=== PATIENT | male | born 1960 | race Caucasian/White ===

== ENCOUNTER → 2021-11-08 | Outpatient (CLI) | payer OTHER ==
--- NOTE | 2021-11-08 16:03 | XR ---
EXAMINATION TYPE: XR chest 2V DATE OF EXAM: 11/08/2021 COMPARISON: None HISTORY: 61-year-old male R06.02, wheezing, cough, shortness of breath TECHNIQUE: Frontal and lateral views FINDINGS: The cardiomediastinal silhouette, aorta, and pulmonary vasculature are within normal limits. Lungs an d pleural spaces are clear. IMPRESSION: No acute cardiopulmonary process.
== END | disposition home or self-care (01) ==
LOC: RADXRMAIN 13:10
PROVIDERS: ATTEND Family Medicine
DX: R06.02 Shortness of breath (principal)
CPT/HCPCS: 71046

== ENCOUNTER 2022-10-18 10:31 | Observation (INO) | payer OTHER ==
[2022-10-18 11:16] LABS: Basophils % (A) 1 %; Eosinophils # (A) 0.1 k/uL (0-0.7); Eosinophils % (A) 1 %; HCT 41.3 % (39.0-53.0); HGB 14.7 gm/dL (13.0-17.5); Lymphocytes # (A) 1.7 k/uL (1.0-4.8); Lymphocytes % (A) 25 %; MCH 31.2 pg (25.0-35.0); MCHC 35.6 g/dL (31.0-37.0); MCV 87.7 fL (80.0-100.0); Mean Platelet Volume 7.4; Monocytes # (A) 0.4 k/uL (0-1.0); Monocytes % (A) 6 %; Neutrophils # (A) 4.3 k/uL (1.3-7.7); Neutrophils % (A) 64 %; Platelet Count 188 k/uL (150-450); RBC 4.71 m/uL (4.30-5.90); RDW 14.5 % (11.5-15.5); WBC 6.8 k/uL (3.8-10.6)
[2022-10-18 11:34] LABS: ALT 39 U/L (4-49); AST 36 U/L (17-59); African American GFR (CKD) >90 (>60 ml/min/1.73 sqM); Albumin 4.3 g/dL (3.5-5.0); Alkaline Phosphatase 130 U/L (38-126); Anion Gap 10 mmol/L; Blood Urea Nitrogen 12 mg/dL (9-20); Calcium 9.6 mg/dL (8.4-10.2); Carbon Dioxide 21 mmol/L (22-30); Chloride 104 mmol/L (98-107); Glucose 121 mg/dL (74-99); Lipase 150 U/L (23-300); Magnesium 1.8 mg/dL (1.6-2.3); Non-African American GFR(CKD) >90 (>60 ml/min/1.73 sqM); Potassium 3.7 mmol/L (3.5-5.1); Sodium 135 mmol/L (137-145); Total Bilirubin 1.5 mg/dL (0.2-1.3); Total Protein 7.5 g/dL (6.3-8.2)
--- NOTE | 2022-10-18 11:35 | XR ---
EXAMINATION TYPE: XR chest 2V DATE OF EXAM: 10/18/2022 COMPARISON: 11/08/2021 HISTORY: Shortness of breath TECHNIQUE: Frontal and lateral views of the chest are obtained. FINDINGS: Scattered senescent parenchymal changes noted. Hyperinflation compatible with COPD. No evidence for infiltrate. No evidence for atelectasis. Heart size is stable. Mediastinal structures are stable and grossly unremarkable. No evidence for hilar prominence. Degenerative changes dorsal spine. IMPRESSION: 1. No evidence for acute pulmonary disease.
[2022-10-18 11:41] LABS: NT-Pro-B-Type Natriuretic Pept 136 pg/mL
--- NOTE | 2022-10-18 11:48 | ED ---
General Adult HPI - General Chief complaint: Chest Pain Stated complaint: Chest pain Time Seen by Provider: 10/18/22 10:35 Source: patient, RN notes reviewed, old records reviewed Mode of arrival: ambulatory Limitations: no limitations - History of Present Illness Initial comments: This is a 62-year-old male who presents emergency Department complaining of chest pain for the last 2 days. Patient states the chest pain is been constant now is progressive given him a little feeling of numbness and left arm. Patient states she's also significantly short of breath. Patient states the pain in the chest is more of a pressure. Patient denies any diaphoretic episodes. Patient denies any nausea vomiting. Patient's abdominal pain. Patient denies any fever chills or cough. Patient denies any leg pain or Swelling. Patient states he recently was in the hospital for cellulitis of his foot. - Related Data Home Medications Medication Instructions Recorded Confirmed Budesonide/Formoterol Fumarate 2 puff INHALATION RT-BID 10/18/22 10/18/22 [Symbicort 160-4.5 Mcg Inhaler] Fexofenadine HCl [Iveth Allergy] 180 mg PO DAILY 10/18/22 10/18/22 Losartan-Hctz 50-12.5 mg [Hyzaar 1 tab PO DAILY 10/18/22 10/18/22 50-12.5] Montelukast [Singulair] 10 mg PO DAILY 10/18/22 10/18/22 Allergies Allergy/AdvReac Type Severity Reaction Status Date / Time No Known Allergies Allergy Verified 10/18/22 10:55 Review of Systems ROS Statement: Those systems with pertinent positive or pertinent negative responses have been documented in the HPI. ROS Other: All systems not noted in ROS Statement are negative. Past Medical History Past Medical History: No Reported History History of Any Multi-Drug Resistant Organisms: None Reported Past Surgical History: No Surgical Hx Reported Past Psychological History: No Psychological Hx Reported Smoking Status: Never smoker Past Alcohol Use History: None Reported Past Drug Use History: None Reported General Exam - General Exam Comments Initial Comments: GENERAL: Patient is well-developed and well-nourished. Patient is nontoxic and well- hydrated and is in mild distress. ENT: Neck is soft and supple. No significant lymphadenopathy is noted. Oropharynx is clear. Moist mucous membranes. Neck has full range of motion without eliciting any pain. EYES: The sclera were anicteric and conjunctiva were pink and moist. Extraocular movements were intact and pupils were equal round and reactive to light. Eyelids were unremarkable. PULMONARY: Unlabored respirations. Good breath sounds bilaterally. No audible rales rhonchi or wheezing was noted. CARDIOVASCULAR: There is a regular rate and rhythm without any murmurs gallops or rubs. ABDOMEN: Soft and nontender with normal bowel sounds. SKIN: Skin is clear with no lesions or rashes and otherwise unremarkable. NEUROLOGIC: Patient is alert and oriented x3. Cranial nerves II through XII are grossly intact. Motor and sensory are also intact. Normal speech, volume and content. Symmetrical smile. MUSCULOSKELETAL: Normal extremities with adequate strength and full range of motion. LYMPHATICS: No significant lymphadenopathy is noted PSYCHIATRIC: Normal psychiatric evaluation. N Limitations: no limitations Course Vital Signs 10/18/22 10:33 Temperature 97.9 F Pulse Rate 129 H Respiratory 24 Rate Blood Pressure 153/94 O2 Sat by Pulse 100 Oximetry Medical Decision Making - Medical Decision Making EKG was interpreted by myself EKG shows sinus tachycardia at 100 bpm PA interval 284 tresses 83 QT interval 05/[birth year]/1969 QTC is 394. Patient's EKG shows no significant ST segment elevation or depression Was pt. sent in by a medical professional or institution (, PA, [employer], urgent care, hospital, or intermediate...) When possible be specific @ -No Did you speak to anyone other than the patient for history (EMS, parent, family, police, friend...)? What history was obtained from this source @ -No Did you review nursing and triage notes (agree or disagree)? Why? @ -I reviewed and agree with nursing and triage notes Were old charts reviewed (outside hosp., previous admission, EMS record, old EKG, old radiological studies, urgent care reports/EKG's, intermediate records)? Report findings @ -I reviewed prior charts prior EKGs in prior labwork on this patient Differential Diagnosis (chest pain, altered mental status, abdominal pain women, abdominal pain men, vaginal bleeding, weakness, fever, dyspnea, syncope, headache, dizziness, GI bleed, back pain, seizure, CVA, palpatations, mental health, musculoskeletal)? @ -Differential Chest Pain: Stable Angina, Unstable Angina, STEMI, NSTEMI Aortic Dissection, Pneumothorax, Musculoskeletal, Esophageal Spasm GERD, Cholecystitis, Pancreatitis, Zoster, this is not meant to be an all-inclusive list. EKG interpreted by me (3pts min.). @ -As above X-rays interpreted by me (1pt min.). @ -Chest x-ray shows no acute abnormality CT interpreted by me (1pt min.). @ -None done U/S interpreted by me (1pt. min.). @ -None done What testing was considered but not performed or refused? (CT, X-rays, U/S, labs)? Why? @ -None What meds were considered but not given or refused? Why? @ -None Did you discuss the management of the patient with other professionals (professionals i.e. , PA, [employer], lab, RT, psych nurse, professor of social work, clothing and textiles teacher, teacher, human resource officer, patient case coordinator)? Give summary @ -I spoke with Dr. Valderrama he agreed to admit the patient I admitted the patient I wrote admitting orders Was smoking cessation discussed for >3mins.? @ -No Was critical care preformed (if so, how long)? @ -No Were there social determinants of health that impacted care today? How? (Homelessness, low income, unemployed, alcoholism, drug addiction, transportation, low edu. Level, literacy, decrease access to med. care, half-way, rehab)? @ -No Was there de-escalation of care discussed even if they declined (Discuss DNR or withdrawal of care, Hospice)? DNR status @ -No What co-morbidities impacted this encounter? (DM, HTN, Smoking, COPD, CAD, Cancer, CVA, ARF, Chemo, Hep., AIDS, mental health diagnosis, sleep apnea, morbid obesity)? @ -None Was patient admitted / discharged? Hospital course, mention meds given and route, prescriptions, significant lab abnormalities, going to OR and other pertinent info. @ -Patient's lab work came back within normal range except for a elevated d- dimer which a CAT scan is been ordered. I spoke with family agreed to admit the patient admitted the patient consult to cardiology Undiagnosed new problem with uncertain prognosis? @ -No Drug Therapy requiring intensive monitoring for toxicity (Heparin, Nitro, Insulin, Cardizem)? @ -No Were any procedures done? @ -No Diagnosis/symptom? @ -Chest pain Acute, or Chronic, or Acute on Chronic? @ -Acute Uncomplicated (without systemic symptoms) or Complicated (systemic symptoms)? @ -Complicated Side effects of treatment? @ -No Exacerbation, Progression, or Severe Exacerbation? @ -No Poses a threat to life or bodily function? How? (Chest pain, [place], [place], pneumonia, PE, COPD, DKA, ARF, appy, cholecystitis, CVA, Diverticulitis, Homicidal, Suicidal, threat to staff... and all critical care pts) @ -Yes this could lead to a heart attack and end organ dysfunction - Lab Data Result diagrams: 10/18/22 11:03 10/18/22 11:03 Lab Results 10/18/22 10/18/22 10/18/22 Range/Units 11:03 11:03 11:03 WBC 6.8 (3.8-10.6) k/uL RBC 4.71 (4.30-5.90) m/uL Hgb 14.7 (13.0-17.5) gm/dL Hct 41.3 (39.0-53.0) % MCV 87.7 (80.0-100.0) fL MCH 31.2 (25.0-35.0) pg MCHC 35.6 (31.0-37.0) g/dL RDW 14.5 (11.5-15.5) % Plt Count 188 (150-450) k/uL MPV 7.4 Neutrophils % 64 % Lymphocytes % 25 % Monocytes % 6 % Eosinophils % 1 % Basophils % 1 % Neutrophils # 4.3 (1.3-7.7) k/uL Lymphocytes # 1.7 (1.0-4.8) k/uL Monocytes # 0.4 (0-1.0) k/uL Eosinophils # 0.1 (0-0.7) k/uL Basophils # 0.0 (0-0.2) k/uL PT 10.0 (9.0-12.0) sec INR 0.9 (<1.2) APTT 25.9 (22.0-30.0) sec D-Dimer 0.81 H (<0.60) mg/L FEU Sodium 135 L (137-145) mmol/L Potassium 3.7 (3.5-5.1) mmol/L Chloride 104 (98-107) mmol/L Carbon Dioxide 21 L (22-30) mmol/L Anion Gap 10 mmol/L BUN 12 (9-20) mg/dL Creatinine 0.89 (0.66-1.25) mg/dL Est GFR (CKD-EPI)AfAm >90 (>60 ml/min/1.73 sqM) Est GFR (CKD-EPI)NonAf >90 (>60 ml/min/1.73 sqM) Glucose 121 H (74-99) mg/dL Calcium 9.6 (8.4-10.2) mg/dL Magnesium 1.8 (1.6-2.3) mg/dL Total Bilirubin 1.5 H (0.2-1.3) mg/dL AST 36 (17-59) U/L ALT 39 (4-49) U/L Alkaline Phosphatase 130 H (38-126) U/L Troponin I (0.000-0.034) ng/mL NT-Pro-B Natriuret Pep 136 pg/mL Total Protein 7.5 (6.3-8.2) g/dL Albumin 4.3 (3.5-5.0) g/dL Lipase 150 (23-300) U/L 10/18/22 Range/Units 11:03 WBC (3.8-10.6) k/uL RBC (4.30-5.90) m/uL Hgb (13.0-17.5) gm/dL Hct (39.0-53.0) % MCV (80.0-100.0) fL MCH (25.0-35.0) pg MCHC (31.0-37.0) g/dL RDW (11.5-15.5) % Plt Count (150-450) k/uL MPV Neutrophils % % Lymphocytes % % Monocytes % % Eosinophils % % Basophils % % Neutrophils # (1.3-7.7) k/uL Lymphocytes # (1.0-4.8) k/uL Monocytes # (0-1.0) k/uL Eosinophils # (0-0.7) k/uL Basophils # (0-0.2) k/uL PT (9.0-12.0) sec INR (<1.2) APTT (22.0-30.0) sec D-Dimer (<0.60) mg/L FEU Sodium (137-145) mmol/L Potassium (3.5-5.1) mmol/L Chloride (98-107) mmol/L Carbon Dioxide (22-30) mmol/L Anion Gap mmol/L BUN (9-20) mg/dL Creatinine (0.66-1.25) mg/dL Est GFR (CKD-EPI)AfAm (>60 ml/min/1.73 sqM) Est GFR (CKD-EPI)NonAf (>60 ml/min/1.73 sqM) Glucose (74-99) mg/dL Calcium (8.4-10.2) mg/dL Magnesium (1.6-2.3) mg/dL Total Bilirubin (0.2-1.3) mg/dL AST (17-59) U/L ALT (4-49) U/L Alkaline Phosphatase (38-126) U/L Troponin I <0.012 (0.000-0.034) ng/mL NT-Pro-B Natriuret Pep pg/mL Total Protein (6.3-8.2) g/dL Albumin (3.5-5.0) g/dL Lipase (23-300) U/L Disposition Clinical Impression: Chest pain Disposition: ADMITTED IP TO THIS HOSP Referrals: Alban Valderrama MD [Primary Care Provider] - 1-2 days Time of Disposition: 12:03
[2022-10-18 11:50] LABS: INR 0.9 (<1.2); Partial Thromboplastin Time 25.9 sec (22.0-30.0)
[2022-10-18] MEDS ORDERED: NITROGLYCERIN SL TABS 0.4 MG TAB SUBLINGUAL PRN (12:03)
--- NOTE | 2022-10-18 14:16 | CT ---
CT CHEST FOR PULMONARY EMBOLISM. EXAMINATION TYPE: CT chest angio for PE DATE OF EXAM: 10/18/2022 INDICATION: Chest pain, Dyspnea, Elevated D-dimer CT DLP: 370.5 mGycm, Automated exposure control for dose reduction was used. CONTRAST: Patient injected with 100 ml mL of Isovue 370. COMPARISON: TECHNIQUE: CT of the chest is performed on a spiral scan at 2 mm thick sections. Study is performed with intravenous contrast timed for evaluation for pulmonary embolism. This will limit additional po rtions of the evaluation. 3-D MIP images reconstructed by the technologist are reviewed on the compu ter in the coronal and sagittal planes. FINDINGS: No persistent filling defects are evident to suggest an acute pulmonary embolism. No mediastinal or hilar adenopathy enlarged by CT criteria is evident. The ascending aorta diameter at the level of the main pulmonary artery is 3.3 cm. The main pulmonary artery diameter at the bifur cation is 3.0 cm. Lung windows are clear. Subtle groundglass opacities are not entirely excluded. Limited CT section through the upper abdomen are unremarkable. IMPRESSIONS: 1. No acute pulmonary embolism. 2. Very minimal pulmonary edema may be present. Clinical correlation recommended.
[2022-10-18] MEDS: PANTOPRAZOLE 40 MG TABLET PO SCH (18:35)
[2022-10-18] MEDS: NITROGLYCERIN OINT 1 INCH/GM PACKET TOPICAL SCH (20:43)
[2022-10-18] MEDS: IPRATROPIUM-ALBUTEROL 3 ML NEB INHALATION SCH (21:47)
[2022-10-18] MEDS: BUDESONIDE 0.5 MG/2 ML NEBU INHALATION SCH (21:47)
[2022-10-19] MEDS: NITROGLYCERIN OINT 1 INCH/GM PACKET TOPICAL SCH ×2 (00:47→06:11)
--- NOTE | 2022-10-19 02:05 | HP ---
HISTORY AND PHYSICAL HISTORY OF PRESENT ILLNESS: This is a 62-year-old white male complaining of chest pain for the last 2 days. He has had some numbness on his left arm, pain is more of a pressure in his chest. He woke up with it after sleeping. Denies nausea and vomiting. No fevers or chills. Recently came in with cellulitis and diastolic heart failure. HOME MEDICATIONS: 1. Symbicort 160/4.5 two puffs b.i.d. 2. Iveth 180 daily. 3. Losartan HCTZ 250/12.5 one daily. 4. Senna 10 mg 1 daily. REVIEW OF SYSTEMS: A 14-point review of systems otherwise negative for review of systems. PAST MEDICAL HISTORY: Allergic rhinitis, possible hypertension. He is sitting up in bed, in no acute distress. Pain level has gone from 10 to 2 while in the hospital, he has been improved. PHYSICAL EXAMINATION: NEUROLOGIC: Cranial nerves intact. PSYCH: Fair mood and affect. CARDIOVASCULAR: S1, S2. LUNGS: Decreased breath sounds x4. HEMATOLOGY: Negative Homans. VITAL SIGNS: Temperature 97.9, pulse is 129, now down at 98, respiratory rate 18 to 24. Elevated D-dimer. CT of the chest did not show any PE. Labs are reviewed. Atypical chest pain. So far, troponins are negative x3. Possibly order echocardiogram which is pending. Wait for Cardiology consult. Give breathing treatments. Prognosis guarded. MMYISSELL / LELAN: [phone] /
[2022-10-19] MEDS: PANTOPRAZOLE 40 MG TABLET PO SCH (06:40)
[2022-10-19 08:04] VITALS: BP 103/68; RESP 18; TEMP 97.5
[2022-10-19] MEDS: IPRATROPIUM-ALBUTEROL 3 ML NEB INHALATION SCH ×2 (08:37→12:18)
[2022-10-19] MEDS: BUDESONIDE 0.5 MG/2 ML NEBU INHALATION SCH (08:37)
[2022-10-19] MEDS ORDERED: ASPIRIN 325 MG TAB PO SCH (09:00)
[2022-10-19] MEDS ORDERED: MONTELUKAST 10 MG TAB PO SCH (09:00)
[2022-10-19] MEDS ORDERED: LOSARTAN-HCTZ 50-12.5 MG 1 EACH TAB PO SCH (09:00)
[2022-10-19] MEDS ORDERED: LORATADINE 10 MG TAB PO SCH (09:00)
--- NOTE | 2022-10-19 10:21 | P.CRDCN ---
History of Present Illness Consult date: 10/19/22 Chief complaint: Chest pain History of present illness: The patient is a pleasant 62-year-old gentleman with a past medical history significant for hypertension but no diabetes or dyslipidemia or smoking or family history of premature CAD. He presented to the hospital complaining of chest discomfort. He was experiencing intermittent episodes of chest discomfort/pressure in the middle of the chest with no shortness of breath or sweating or dizziness or lightheadedness or any feeling of heart racing or fluttering or presyncope or syncope the discomfort is not exertion related. The discomfort is also not stress related. He decided to come to the emergency department for further evaluation. He underwent an EKG which showed sinus mecha nism was evidence of early repolarization and 3 sets of cardiac enzymes came in to be unremarkable. D-dimer came in to be abnormal but subsequently CTA of the chest showed no evidence of pulmonary embolism. Currently the patient is chest pain-free. I informed the patient that stress sestamibi to be done to rule out severe CAD but the patient would like to go home and have the test done as an ou tpatient. I feel this is not unreasonable given that he is a symptomatically this point and going to get the patient up and around to see if he developed any symptoms or stay asymptomatic with exertion. The examination is remarkable for stable vital signs with mild sinus tachycardia and clear breathing sounds bilaterally and no lower extremity edema noted Assessment Chest discomfort appeared to be atypical Hypertension Plan Acute coronary event was ruled out Pulmonary embolism was ruled out Obtain a stress test probably as an outpatient Follow-up with the patient Past Medical History Past Medical History: Hypertension Additional Past Medical History / Comment(s): recent cellulitis of right foot, healed History of Any Multi-Drug Resistant Organisms: None Reported Past Surgical History: No Surgical Hx Reported Smoking Status: Never smoker Medications and Allergies Home Medications Medication Instructions Recorded Confirmed Type Budesonide/Formoterol Fumarate 2 puff INHALATION RT-BID 10/18/22 10/18/22 History [Symbicort 160-4.5 Mcg Inhaler] Fexofenadine HCl [Iveth Allergy] 180 mg PO DAILY 10/18/22 10/18/22 History Losartan-Hctz 50-12.5 mg [Hyzaar 1 tab PO DAILY 10/18/22 10/18/22 History 50-12.5] Montelukast [Singulair] 10 mg PO DAILY 10/18/22 10/18/22 History Allergies Allergy/AdvReac Type Severity Reaction Status Date / Time No Known Allergies Allergy Verified 10/18/22 10:55 Physical Exam Vitals: Vital Signs Temp Pulse Pulse Pulse Resp BP BP 10/19/22 08:48 93 10/19/22 08:38 92 10/19/22 07:00 97.5 F L 89 18 103/68 10/19/22 02:40 98.2 F 82 16 122/73 10/18/22 22:04 98 10/18/22 21:48 98 10/18/22 19:26 98.2 F 100 16 129/68 10/18/22 18:16 98.2 F 110 H 16 146/81 10/18/22 16:58 97.7 F 99 18 130/82 10/18/22 16:00 98 18 10/18/22 15:00 94 20 10/18/22 14:00 97 18 10/18/22 13:06 89 20 10/18/22 12:00 102 H 20 10/18/22 11:00 96 24 10/18/22 10:38 108 H 24 10/18/22 10:33 97.9 F 129 H 24 153/94 Pulse Ox 10/19/22 08:48 10/19/22 08:38 10/19/22 07:00 98 10/19/22 02:40 94 L 10/18/22 22:04 10/18/22 21:48 10/18/22 19:26 96 10/18/22 18:16 100 10/18/22 16:58 95 10/18/22 16:00 94 L 10/18/22 15:00 94 L 10/18/22 14:00 98 10/18/22 13:06 96 10/18/22 12:00 94 L 10/18/22 11:00 99 10/18/22 10:38 10/18/22 10:33 100 Intake and Output 10/18/22 10/19/22 10/19/22 22:59 06:59 14:59 Intake Total 540 Balance 540 Intake: Oral 540 Other: Voiding Method Toilet Toilet # Voids 1 1 Weight 83.461 kg Results 10/18/22 11:03 10/18/22 11:03 Cardiac Enzymes 10/18/22 10/18/22 10/18/22 Range/Units 11:03 11:03 14:30 AST 36 (17-59) U/L Troponin I <0.012 <0.012 (0.000-0.034) ng/mL 10/19/22 Range/Units 05:26 AST (17-59) U/L Troponin I <0.012 (0.000-0.034) ng/mL Coagulation 10/18/22 Range/Units 11:03 PT 10.0 (9.0-12.0) sec APTT 25.9 (22.0-30.0) sec CBC 10/18/22 Range/Units 11:03 WBC 6.8 (3.8-10.6) k/uL RBC 4.71 (4.30-5.90) m/uL Hgb 14.7 (13.0-17.5) gm/dL Hct 41.3 (39.0-53.0) % Plt Count 188 (150-450) k/uL Comprehensive Metabolic Panel 10/18/22 Range/Units 11:03 Sodium 135 L (137-145) mmol/L Potassium 3.7 (3.5-5.1) mmol/L Chloride 104 (98-107) mmol/L Carbon Dioxide 21 L (22-30) mmol/L BUN 12 (9-20) mg/dL Creatinine 0.89 (0.66-1.25) mg/dL Glucose 121 H (74-99) mg/dL Calcium 9.6 (8.4-10.2) mg/dL AST 36 (17-59) U/L ALT 39 (4-49) U/L Alkaline Phosphatase 130 H (38-126) U/L Total Protein 7.5 (6.3-8.2) g/dL Albumin 4.3 (3.5-5.0) g/dL Current Medications Generic Name Dose Route Start Last Admin Trade Name Freq PRN Reason Stop Dose Admin Albuterol/Ipratropium 3 ml 10/18/22 20:00 10/19/22 08:37 Ipratropium-Albuterol 3 Ml Neb INHALATION 3 ml RT-QID WILFREDO Administration Aspirin 325 mg 10/19/22 09:00 10/19/22 08:55 Aspirin 325 Mg Tab PO 325 mg DAILY WILFREDO Administration Budesonide 0.5 mg 10/18/22 20:00 10/19/22 08:37 Budesonide 0.5 Mg/2 Ml Nebu INHALATION 0.5 mg RT-BID WILFREDO Administration HCTZ/Losartan Potassium 1 each 10/19/22 09:00 10/19/22 08:55 Losartan-Hctz 50-12.5 Mg 1 Each Tab PO 1 each DAILY WILFREDO Administration Loratadine 10 mg 10/19/22 09:00 10/19/22 08:55 Loratadine 10 Mg Tab PO 10 mg DAILY WILFREDO Administration Montelukast Sodium 10 mg 10/19/22 09:00 10/19/22 08:55 Montelukast 10 Mg Tab PO 10 mg DAILY WILFREDO Administration Nitroglycerin 0.4 mg 10/18/22 12:03 Nitroglycerin Sl Tabs 0.4 Mg Tab SUBLINGUAL Q5M PRN Chest Pain Nitroglycerin 1 inch 10/18/22 18:00 10/19/22 06:11 Nitroglycerin Oint 1 Inch/Gm Packet TOPICAL Not Given Q6HR [facility] Pantoprazole Sodium 40 mg 10/18/22 17:30 10/19/22 06:40 Pantoprazole 40 Mg Tablet PO 40 mg AC-BID WILFREDO Administration Intake and Output 10/18/22 10/19/22 10/19/22 22:59 06:59 14:59 Intake Total 540 Balance 540 Intake: Oral 540 Other: Voiding Method Toilet Toilet # Voids 1 1 Weight 83.461 kg 10/18/22 11:03 10/18/22 11:03
[2022-10-19 10:23] LABS: Chol/HDL Ratio 4.36 Ratio; LDL Cholesterol,Calculated 112.7 mg/dL (0.0-131.0)
--- NOTE | 2022-10-19 10:45 | CA ---
Transthoracic Echo Report Name: Gentry Shen Age: 62 Gender: M : 1960 Exam Date: 10/19/2022 07:22 Exam Location: [place] [facility] Ht (in): 66 Wt (lb): 184 Ordering Physician: Alban Valderrama MD Attending/Referring Phys: [employer] Abbey Barron RDCS Procedure CPT: Indications: dyspnea Cardiac Hx: Technical Quality: Good Contrast 1: Total Dose (mL): Contrast 2: Total Dose (mL): MEASUREMENTS (Male / Female) Normal Values 2D ECHO LV Diastolic Diameter PLAX 4.6 cm 4.2 - 5.9 / 3.9 - 5.3 cm LV Systolic Diameter PLAX 2.8 cm IVS Diastolic Thickness 1.1 cm 0.6 - 1.0 / 0.6 - 0.9 cm LVPW Diastolic Thickness 1.2 cm 0.6 - 1.0 / 0.6 - 0.9 cm LV Relative Wall Thickness 0.5 RV Internal Dim ED PLAX 2.7 cm LA Systolic Diameter LX 3.1 cm 3.0 - 4.0 / 2.7 - 3.8 cm LV Diastolic Volume MOD BP 56.6 cm??? 67 - 155 / 56 - 104 cm??? LV Systolic Volume MOD BP 28.4 cm??? 22 - 58 / 19 - 49 cm??? LV Ejection Fraction MOD BP 49.8 % >= 55 % LV Cardiac Index MOD BP 1143.8 cm???/min???m??? LV Diastolic Volume MOD 4C 65.6 cm??? LV Systolic Volume MOD 4C 29.5 cm??? LV Ejection Fraction MOD 4C 55.0 % LV Cardiac Index MOD 4C 1462.4 cm???/min???m??? LV Diastolic Length 4C 7.4 cm LV Systolic Length 4C 6.9 cm LV Diastolic Volume MOD 2C 49.1 cm??? LV Systolic Volume MOD 2C 22.5 cm??? LV Ejection Fraction MOD 2C 54.3 % LV Cardiac Index MOD 2C 1083.3 cm???/min???m??? LV Diastolic Length 2C 7.5 cm LV Systolic Length 2C 5.7 cm LA Volume 44.6 cm??? 18 - 58 / 22 - 52 cm??? M-MODE Aortic Root Diameter MM 3.0 cm MV E Point Septal Separation 0.6 cm AV Cusp Separation MM 1.9 cm DOPPLER AV Peak Velocity 136.5 cm/s AV Peak Gradient 7.5 mmHg MV Area PHT 3.0 cm??? Mitral E Point Velocity 69.3 cm/s Mitral A Point Velocity 76.0 cm/s Mitral E to A Ratio 0.9 MV Deceleration Time 256.4 ms MV E' Velocity 5.7 cm/s Mitral E to MV E' Ratio 12.2 TR Peak Velocity 236.8 cm/s TR Peak Gradient 22.4 mmHg Right Ventricular Systolic Press 27.1 mmHg FINDINGS Left Ventricle Left ventricular ejection fraction is estimated at 55-60 %. Left ventricular cavity size normal. Mildly decreased left ventricular ejection fraction. Right Ventricle Normal right ventricular size. Right ventricular systolic pressure within normal limits. Right Atrium Normal right atrial size. Left Atrium Normal left atrial size. Mitral Valve Structurally normal mitral valve. No mitral stenosis, regurgitation or prolapse. Aortic Valve Trileaflet aortic valve. No aortic valve stenosis or regurgitation. Tricuspid Valve Structurally normal tricuspid valve. Mild tricuspid regurgitation. Pulmonic Valve Structurally normal pulmonic valve. No pulmonic regurgitation. Pericardium No pericardial effusion. Aorta Normal size aortic root and proximal ascending aorta. CONCLUSIONS Normal biventricular dimension and systolic function No significant valvular abnormalities Previewed by: Dr. Zacarias Avalos MD (Electronically Signed) Final Date: 19 October 2022 10:44
[2022-10-19 12:29] VITALS: PULSE 94
== END 2022-10-19 14:04 | disposition home or self-care (01) ==
LOC: EC 10:31 → 6NMEDSUR 12:06
PROVIDERS: ADMIT Family Medicine; ATTEND Family Medicine
DX: R07.89 Other chest pain (principal); R79.89 Other specified abnormal findings of blood chemistry; R06.02 Shortness of breath; R20.0 Anesthesia of skin; I11.0 Hypertensive heart disease with heart failure; I50.30 Unspecified diastolic (congestive) heart failure; J30.9 Allergic rhinitis, unspecified; R00.0 Tachycardia, unspecified; Z79.51 Long term (current) use of inhaled steroids; Z79.899 Other long term (current) drug therapy; Z87.2 Personal history of diseases of the skin and subcutaneous tissue
CPT/HCPCS: 99285; 36415; 94640 ×2; 93005; 93306; 85379; 83880; 80061; 80053; 84443; 83690; 83735; 84484 ×2; 85025; 85610; 85730; 71046; 71275; G0378 ×2; Q9967

== ENCOUNTER 2023-06-20 15:15 | Emergency (ER) | payer OTHER ==
--- NOTE | 2023-06-20 16:01 | ED ---
ENT HPI - General Chief complaint: ENT Stated complaint: Nose bleed Time Seen by Provider: 06/20/23 15:30 Source: patient, RN notes reviewed Mode of arrival: ambulatory - History of Present Illness Initial comments: This is a 62-year-old male presents emergency department chief complaint of a nosebleed. Patient states that around 230 this afternoon he began experiencing a nosebleed out of his left naris. On Friday, patient states that he went to care at emergency center due to complaints of a nosebleed with a packed his nose. Patient states that he went to his primary care on Friday where the packing was removed. Additionally, he follow-up with ENT specialist on Friday but was stated that the bleeding calyculus controlled. Patient denies any related trauma, states that he got home from work and noticed his nose started bleeding. Denies use of any blood thinners. Denies dizziness, lightheadedness, headaches. - Related Data Home Medications Medication Instructions Recorded Confirmed Budesonide/Formoterol Fumarate 2 puff INHALATION RT-BID 10/18/22 10/18/22 [Symbicort 160-4.5 Mcg Inhaler] Fexofenadine HCl [Iveth Allergy] 180 mg PO DAILY 10/18/22 10/18/22 Losartan-Hctz 50-12.5 mg [Hyzaar 1 tab PO DAILY 10/18/22 10/18/22 50-12.5] Montelukast [Singulair] 10 mg PO DAILY 10/18/22 10/18/22 Previous Rx's Medication Instructions Recorded Aspirin 325 mg PO DAILY tab 10/19/22 Pantoprazole [Protonix] 40 mg PO AC-BID 90 Days #180 tab 10/19/22 Allergies Allergy/AdvReac Type Severity Reaction Status Date / Time No Known Allergies Allergy Verified 06/20/23 15:25 Review of Systems ROS Statement: Those systems with pertinent positive or pertinent negative responses have been documented in the HPI. ROS Other: All systems not noted in ROS Statement are negative. Past Medical History Past Medical History: Hypertension Additional Past Medical History / Comment(s): recent cellulitis of right foot, healed History of Any Multi-Drug Resistant Organisms: None Reported Past Surgical History: No Surgical Hx Reported Past Psychological History: No Psychological Hx Reported Smoking Status: Never smoker General Exam General appearance: alert, in no apparent distress Head exam: Present: atraumatic, normocephalic, normal inspection Eye exam: Present: normal appearance, PERRL, EOMI. Absent: scleral icterus, conjunctival injection, periorbital swelling ENT exam: Present: other (left naris noted to have bleeding, unable to visualize exact location of bleeding). Absent: normal oropharynx (noted post nasal drainage of coagulated and clotted blood, no active bleeding in the oropharynx) Neck exam: Present: normal inspection. Absent: tenderness, meningismus, lym phadenopathy Respiratory exam: Present: normal lung sounds bilaterally. Absent: respiratory distress, wheezes, rales, rhonchi, stridor Cardiovascular Exam: Present: regular rate, normal rhythm, normal heart sounds. Absent: systolic murmur, diastolic murmur, rubs, gallop, clicks GI/Abdominal exam: Present: soft, normal bowel sounds. Absent: distended, tenderness, guarding, rebound, rigid Extremities exam: Present: normal inspection, full ROM, normal capillary refill. Absent: tenderness, pedal edema, joint swelling, calf tenderness Back exam: Present: normal inspection Neurological exam: Present: alert, oriented X3, CN II-XII intact Psychiatric exam: Present: normal affect, normal mood Skin exam: Present: warm, dry, intact, normal color. Absent: rash Course Vital Signs 06/20/23 06/20/23 15:22 18:47 Temperature 97.7 F 97.6 F Pulse Rate 112 H 98 Respiratory 16 18 Rate Blood Pressure 122/75 120/76 O2 Sat by Pulse 97 99 Oximetry Medical Decision Making - Medical Decision Making Was pt. sent in by a medical professional or institution (, PA, LINKING MACHINE OPERATOR, urgent care, hospital, or half-way...) When possible be specific @ -No Did you speak to anyone other than the patient for history (EMS, parent, family, police, friend...)? What history was obtained from this source @ -No Did you review nursing and triage notes (agree or disagree)? Why? @ -I reviewed and agree with nursing and triage notes Were old charts reviewed (outside hosp., previous admission, EMS record, old EKG, old radiological studies, urgent care reports/EKG's, half-way records)? Report findings @ -No old charts were reviewed Differential Diagnosis (chest pain, altered mental status, abdominal pain women, abdominal pain men, vaginal bleeding, weakness, fever, dyspnea, syncope, headache, dizziness, GI bleed, back pain, seizure, CVA, palpatations, mental health, musculoskeletal)? @ -Epistaxis EKG interpreted by me (3pts min.). @ -None X-rays interpreted by me (1pt min.). @ -None done CT interpreted by me (1pt min.). @ -None done U/S interpreted by me (1pt. min.). @ -None done What testing was considered but not performed or refused? (CT, X-rays, U/S, labs)? Why? @ -Basic labs were considered but deferred at this point due to patient having a rather minimal amount of blood loss in addition to not expressing symptoms of hypovolemia. What meds were considered but not given or refused? Why? @ -None Did you discuss the management of the patient with other professionals (bashir king i.e. , PA, LINKING MACHINE OPERATOR, lab, RT, psych nurse, school social worker, fire prevention officer, teacher, natural resource officer, case worker)? Give summary @ -No Was smoking cessation discussed for >3mins.? @ -No Was critical care preformed (if so, how long)? @ -No Were there social determinants of health that impacted care today? How? (Homelessness, low income, unemployed, alcoholism, drug addiction, transportation, low edu. Level, literacy, decrease access to med. care, custodial, rehab)? @ -No Was there de-escalation of care discussed even if they declined (Discuss DNR or withdrawal of care, Hospice)? DNR status @ -No What co-morbidities impacted this encounter? (DM, HTN, Smoking, COPD, CAD, Cancer, CVA, ARF, Chemo, Hep., AIDS, mental health diagnosis, sleep apnea, morbid obesity)? @ -None Was patient admitted / discharged? Hospital course, mention meds given and route, prescriptions, significant lab abnormalities, going to OR and other pertinent info. @ -Discharged. 62-year-old male with epistaxis. On physical examination patient was noted to have bleeding from the left naris that was rather mild. Initially attempted Afrin nasal spray with nasal clamping for 30 minutes. On reevaluation patient still had mild bleeding from the left naris. At this time TXA was applied due to cotton swabs and placed inside on the left and right naris for cautionary in case right nairs was also bleeding, consult for left of the patient's nose for roughly 20 minutes. Removal of the swabs resulted in ceasing of bleeding. Patient additionally coughed up a 2 cm blood clot. On reevaluation, states that he is feeling much better and is able to breathe better and symptoms have improved after coughing up clot and stopping of bleeding. Patient is stable for discharge. Recommend that patient follows up with his primary care provider on Friday for further evaluation and recommend patient make an additional follow-up appointment with ENT physician for further evaluation due to this being a recurrent incidence. Is in agreement with this. Discussed strict return parameters, and patient is discharged with Affrin nasal spray and nasal clamps and provided with education. Discussed with Dr. Melo Undiagnosed new problem with uncertain prognosis? @ -No Drug Therapy requiring intensive monitoring for toxicity (Heparin, Nitro, Insulin, Cardizem)? @ -No Were any procedures done? @ -No Diagnosis/symptom? @ -Epistaxis Acute, or Chronic, or Acute on Chronic? @ -acute Uncomplicated (without systemic symptoms) or Complicated (systemic symptoms)? @ -uncomplicated Side effects of treatment? @ -No Exacerbation, Progression, or Severe Exacerbation? @ -No Poses a threat to life or bodily function? How? (Chest pain, [place], SC, pneumonia, PE, COPD, DKA, ARF, appy, cholecystitis, CVA, Diverticulitis, Homicidal, Suicidal, threat to staff... and all critical care pts) @ -No Disposition Clinical Impression: Epistaxis Narrative: Please return to the Emergency Department if symptoms worsen or any other concerns. Disposition: HOME SELF-CARE Condition: Good Instructions (If sedation given, give patient instructions): Nosebleed (ED) Is patient prescribed a controlled substance at d/c from ED?: No Referrals: Alban Valderrama MD [Primary Care Provider] - 1-2 days Time of Disposition: 18:23
[2023-06-20] MEDS: OXYMETAZOLINE 0.05% NASL SPRAY 1 SPRAY BOTTLE NASAL STA (16:12)
[2023-06-20] MEDS: TRANEXAMIC ACID 1,000 MG/10 ML VIAL IRRIGATION ONE (17:25)
[2023-06-20 18:59] VITALS: BP 120/76; PULSE 98; RESP 18; TEMP 97.6
== END 2023-06-20 18:48 | disposition home or self-care (01) ==
LOC: EC 15:15
DX: R04.0 Epistaxis (principal)
CPT/HCPCS: 99283